=== PATIENT | female | born 1970 | race Caucasian/White ===

== ENCOUNTER 2018-11-07 13:50 | Emergency (ER) | payer OTHER, SELFPAY ==
[2018-11-07 14:19] VITALS: BP 134/91; PULSE 71; RESP 16; TEMP 36.7; O2SAT 100; BMI 44.2
--- NOTE | 2018-11-07 14:42 | ED.EYEPROB ---
HPI - Eye Problem <MINOR Duffy - Last Filed: 11/07/18 21:32> General Chief complaint: Eye Problems Stated complaint: something wrong with left eye Time Seen by Provider: 11/07/18 14:41 Source: patient Mode of arrival: ambulatory Limitations: no limitations History of Present Illness HPI Narrative: 48-year-old healthy female that is a nonsmoker here for complaint of discomfort to her left eye over the past day. She states that the pain started yesterday and will worsened throughout the night. She denies any trauma to the eye. She states that the eye has been watering some. She denies any purulent drainage. She does states that she feels like there is a little bit of blurriness to the left eye. She denies any foreign bodies to the left eye. She denies any stressors or relievers of her discomfort. She denies any other visual changes. She does state that she can currently has a cold sore to her liver was worried about herpes simplex infection to the left eye MD chief complaint: eye pain and eye redness Related Data Previous Rx's Medication Instructions Recorded acyclovir 400 mg PO 5XD #35 tab 11/07/18 erythromycin 0.5 inch EYE-LEFT QID 7 Days #3.5 11/07/18 gram Allergies Allergy/AdvReac Type Severity Reaction Status Date / Time No Known Drug Allergies Allergy Verified 11/07/18 14:18 Review of Systems <MINOR Duffy - Last Filed: 11/07/18 21:32> Constitutional Denies chills, Denies fever(s), Denies lethargy and Denies weakness Eyes Reports eye pain ENT Ears, Nose, Mouth, and Throat: Denies change in voice, Denies neck pain and Denies sore throat Cardiovascular Denies chest pain, Denies irregular heart rhythm, Denies lightheadedness, Denies palpitations, Denies dyspnea, Denies dyspnea on exertion and Denies orthopnea Respiratory Denies cough, Denies dyspnea, Denies dyspnea on exertion and Denies wheezing Gastrointestinal Gastrointestinal: Denies abdominal pain, Denies change in bowel habits, Denies diarrhea, Denies nausea and Denies vomiting Genitourinary Denies hematuria, Denies flank pain, Denies urinary incontinence and Denies urinary urgency Musculoskeletal Denies neck pain Integumentary/Breasts Denies pruritus, Denies erythema, Denies rash and Denies wounds Neurologic Denies confusion and Denies weakness Psychiatric Denies anxiety, Denies confusion, Denies depression, Denies homicidal ideation and Denies suicidal ideation Endocrine Denies palpitations Hematologic/Lymphatic Denies easy bruising Allergic/Immunologic Denies wheezing Exam <MINOR Duffy - Last Filed: 11/07/18 21:32> Initial Vital Signs Initial Vital Signs: Vital Signs Temperature 98.0 F 11/07/18 14:19 Pulse Rate 71 11/07/18 14:19 Respiratory Rate 16 11/07/18 14:19 Blood Pressure 134/91 H 11/07/18 14:19 Pulse Oximetry 100 11/07/18 14:19 Const General: cooperative and well developed Nutritional Appearance: well nourished Orientation: alert, awake, oriented x3 and not confused HENMT Mouth: oral mucosae normal and moist mucous membranes Eyes Conjunctivae: conjunctival abnormality left conjunctival injection Sclera: sclerae normal Cornea: corneas normal Pupils: PERRL EOM: EOM intact bilaterally Direct ophthalmoscopy: normal light reflex Other: slight amount of fluorescein uptake to the lateral left sclera approximately 2-3 mm in size suggestive of a scleral abrasion. no corneal abrasions are appreciated. No dendritic lesions are appreciated. no foreign bodies. Resp Effort & Inspection: normal respiratory effort, able to speak in complete sentences, no respiratory distress and no use of accessory muscles Auscultation: clear to auscultation bilaterally, no rales, no rhonchi and no wheezes Cardio Rate: regular rate Rhythm: regular rhythm Heart Sounds: no click, no gallops, no murmurs and no rubs Pulses: normal peripheral pulses Neuro General: alert, oriented x3, gait normal and no focal motor deficits Speech: speech normal <Cipriano Woods DO - Last Filed: 11/09/18 07:09> Initial Vital Signs Initial Vital Signs: Vital Signs Temperature 98.0 F 11/07/18 14:19 Pulse Rate 71 11/07/18 14:19 Respiratory Rate 16 11/07/18 14:19 Blood Pressure 134/91 H 11/07/18 14:19 Pulse Oximetry 100 11/07/18 14:19 Course <MINOR Duffy - Last Filed: 11/07/18 21:32> Vital Signs - 8 hr 11/07/18 14:19 12/08/18 16:29 Temperature 98.0 F Pulse Rate 71 76 Respiratory Rate 16 18 Blood Pressure 134/91 H 148/87 H Pulse Oximetry 100 98 <Cipriano Woods DO - Last Filed: 11/09/18 07:09> Vital Signs - 8 hr 11/07/18 14:19 12 16:29 Temperature 98.0 F Pulse Rate 71 76 Respiratory Rate 16 18 Blood Pressure 134/91 H 148/87 H Pulse Oximetry 100 98 MDM - Eye Problem <MINOR Duffy - Last Filed: 11/07/18 21:32> MDM Narrative Medical decision making narrative: Signs and symptoms presents as a scleral abrasion. She is prescribed erythromycin to empirically treat for bacterial infection. Will empirically treat for starting herpes simplex infection to the left eye with acyclovir. She is encouraged to follow up with Ophthalmology on Friday for further evaluation. Use [id number] Tylenol as needed for any discomfort. For any worsening symptoms return to the emergency room. Discharge Plan Departure Patient Disposition: Home Clinical Impression: Abrasion of sclera of left eye Discharge Date/Time: 11/07/18 16:29 Interventions: ED Discharge Assessment Last Done: 11/07/18 16:29 Instructions: DI for Eye Pain Activity Restrictions/Additional Instructions: exam shows a small area that appears to be an abrasion to the sclera which is the white portion of your left eye. you are prescribed an antibiotic called erythromycin to prevent bacterial infection. No signs of herpetic infection at this timeframe will however treat empirically to cover for a viral infection by herpes simplex with an and oral antiviral called acyclovir use as directed. Use [id number] Tylenol as needed for any discomfort. Follow up Ophthalmology on Friday call the number at number provided below for any worsening symptoms return to the emergency room. Prescriptions: New acyclovir 400 mg tablet 400 mg PO 5XD Qty: 35 RF: 0 erythromycin 5 mg/gram (0.5 %) ointment 0.5 inch EYE-LEFT QID 7 Days Qty: 3.5 RF: 0 Referrals: Anupam Godoy MD [Physician] - Lady Rahman ARNP [Primary Care Provider] - <DO Zeb Manzo Last Filed: 11/09/18 07:09> Cosign ED Attending Cosignature Attestation: I was immediately available in the department for consultation. Documentation has been reviewed. I agree with assessment and plan.
[2018-11-07 16:29] VITALS: BP 148/87; PULSE 76; RESP 18; O2SAT 98
== END 2018-11-07 16:29 | disposition home or self-care (01) ==
PROVIDERS: Emergency Provider Nurse Practitioner Family; PCP Nurse Practitioner Family
DX: S05.8X2A Other injuries of left eye and orbit, initial encounter (principal)
CPT/HCPCS: 99283

== ENCOUNTER → 2018-11-20 13:55 | Outpatient (CLI) | payer OTHER, SELFPAY ==
--- NOTE | 2018-11-20 | DI.CT.S_ITS ---
PROCEDURE: CT CHEST W CON INDICATIONS: CHEST WALL MASS TECHNIQUE: After the administration of intravenous contrast, 5 mm thick sections acquired from the pulmonary apices to the posterior costophrenic angles. 7 mm thick coronal and sagittal MIP reformats were acquired. For radiation dose reduction, the following was used: automated exposure control, adjustment of mA and/or kV according to patient size. COMPARISON: None. FINDINGS: Image quality: Excellent. Lungs and pleura: No acute air space opacities. No pleural effusions or pneumothorax. Central and peripheral airways are patent and normal in caliber. Mediastinum: Heart size is normal. No pericardial effusion. No mediastinal or hilar adenopathy by size criteria. There is a three-vessel aortic arch. Thoracic aorta and central pulmonary arteries are normal in size. Esophagus is normal in caliber. No hiatal hernia. Bones and chest wall: No significant chest wall mass is identified. No suspicious bony lesions. No vertebral body compression fractures. No axillary or supraclavicular adenopathy by size criteria. Thyroid gland is incompletely imaged on this exam. Abdomen: Mild diffuse hepatic hypoattenuation, which can be seen with hepatic steatosis. Visualized portions of the upper abdominal solid organs appear otherwise normal. Upper abdominal bowel loops are normal in caliber. IMPRESSION: No CT evidence of a significant chest wall mass is identified. Consider targeted ultrasound for further evaluation if there is continued clinical concern. Dictated by: David Hagen M.D. on 11/20/2018 at 16:16 Approved by: David Hagen M.D. on 11/20/2018 at 16:58
== END ==
PROVIDERS: PCP Nurse Practitioner Family; Visit Provider Nurse Practitioner Family
DX: R22.2 Localized swelling, mass and lump, trunk (principal)
CPT/HCPCS: 71260; Q9967